=== PATIENT | female | born 1960 | race Caucasian/White ===

== ENCOUNTER → 2025-01-28 13:11 | Outpatient (BNVA) | payer MEDICAID, SELFPAY | PROVIDERS: PCP Nurse Practitioner Family; Referring Provider Family Medicine; Visit Provider Internal Medicine | DX: R07.9 Chest pain, unspecified (principal); I10 Essential (primary) hypertension; R07.89 Other chest pain; Z87.891 Personal history of nicotine dependence; Z95.2 Presence of prosthetic heart valve; R94.31 Abnormal electrocardiogram [ECG] [EKG] | CPT/HCPCS: 93005; 99204 ==